=== PATIENT | male | born 1995 | race Caucasian/White ===

== ENCOUNTER 2021-11-15 17:24 | Observation (INO) | payer OTHER ==
[2021-11-15] MEDS ORDERED: HYDROmorphone 0.5 MG/0.5 ML Syringe IVPUSH ONE (17:53)
[2021-11-15] MEDS ORDERED: Metoclopramide 10 MG/2 ML SDV IVPUSH ONE (17:53)
[2021-11-15] MEDS ORDERED: Dextrose 5%-0.9% NaCl 1,000 ML IV SCH (18:00)
[2021-11-15 18:23] LABS: ESTIMATED GFR 96 mL/min (>60)
[2021-11-15] MEDS ORDERED: Sodium Chloride 0.9% 10 ML Syringe FLUSH PRN (18:48)
[2021-11-15] MEDS ORDERED: Iopamidol 612 MG/ML 100 ML Bottle IVPUSH ONE (18:48)
[2021-11-15] MEDS ORDERED: Morphine 2 MG/ML SYRINGE IVPUSH PRN (19:54)
[2021-11-15] MEDS ORDERED: oxyCODONE 5 MG Tab PO PRN (19:54)
[2021-11-15] MEDS: Acetaminophen 325 MG Tab PO SCH (20:15)
[2021-11-15] MEDS: Lactated Ringers 1,000 ML IV SCH (21:30)
[2021-11-15] MEDS ORDERED: Ondansetron 4 MG/2 ML SDV IVPUSH PRN (21:38)
[2021-11-16] MEDS: Acetaminophen 325 MG Tab PO SCH ×2 (04:09→12:46)
[2021-11-16] MEDS: Lactated Ringers 1,000 ML IV SCH (07:49)
== END 2021-11-16 14:25 | disposition home or self-care (01) ==
LOC: JD.ED 17:24 → JD.MS 19:54 → JD.ED 20:53
PROVIDERS: ADMIT Surgery; ATTEND Surgery
DX: R10.9 Unspecified abdominal pain (principal); R11.0 Nausea; Z98.890 Other specified postprocedural states
CPT/HCPCS: 36415; 74177; 80048; 80053; 81001; 83690; 85025; 86140; 96361; 96374; 96375; 99285; A9270; J1170; J2270; J2405; J2765; J3490; J7042; J7120; Q9967; 99284